=== PATIENT | female | born 1965 | race Caucasian/White ===

== ENCOUNTER 2018-06-19 09:09 | Emergency (ER) | payer MEDICAID ==
[2018-06-19] MEDS ORDERED: IBUPROFEN 600 MG TAB PO ONE (09:39)
--- NOTE | 2018-06-19 09:44 | EDPHY ---
H & P Time Seen by Provider: 06/19/18 09:16 HPI/ROS: This patient describes achy and sharp pain to the region of her proximal 1st 2nd metatarsals. She explains that she awakened yesterday and stepped out of bed noticing the abrupt pain when she but weight on the foot without any antecedent significant injuries. 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 She reports the pain is 5/10 at rest and more severe and sharp when she tries to bear weight. She had partial relief from ibuprofen yesterday but has not taken any yet today. She drove herself here for evaluation. ROS: Constitutional: No fevers Integumentary: No skin rash Musculoskeletal: No other musculoskeletal complaints. Neuro: No numbness or tingling 5 point review of symptoms is performed and otherwise negative with exception of pertinent positives and negatives listed in HPI and ROS Smoking Status: Never smoked Physical Exam: Physical Exam Vital signs are normal. General: No acute distress HEENT: Atraumatic. Eyes: Pupils equal and react to light. Extraocular motions are intact. Lungs: No respiratory distress. Cardiac: Brisk capillary refill is intact throughout. Pulses are 2+ and symmetric in the affected extremity. Skin: No rash or pallor. Extremities: Atraumatic normal except for left foot Left foot: Patient has moderate to severe tenderness to the proximal 1st and 2nd metatarsal region. No lateral/5th metatarsal tenderness. No ankle swelling or tenderness but no leg swelling or tenderness or knee findings. There is no associated erythema or ecchymosis. She also has no plantar tenderness to the foot. No toe swelling or tenderness Neuro: Alert and oriented x3 with no sensorimotor deficits. Initial differential diagnosis: Stress fracture, foot sprain, contusion, doubt plantar fasciitis based on exam Constitutional: Initial Vital Signs Temperature (C) 37 C 06/19/18 09:14 Heart Rate 85 06/19/18 09:14 Respiratory Rate 16 06/19/18 09:14 Blood Pressure 151/76 H 06/19/18 09:14 O2 Sat (%) 18 L 06/19/18 09:14 O2 Delivery Mode Room Air Allergies/Adverse Reactions: ciprofloxacin [From Cipro] Allergy (Verified 06/19/18 09:19) ciprofloxacin HCl [From Cipro] Allergy (Verified 06/19/18 09:19) eletriptan [From Relpax] Allergy (Verified 06/19/18 09:19) levofloxacin [From Levaquin] Allergy (Verified 06/19/18 09:19) tachycardia Penicillins Allergy (Verified 06/19/18 09:19) Rash Sulfa (Sulfonamide Antibiotics) Allergy (Verified 06/19/18 09:19) Rash Home Medications: Medication Instructions Recorded Albuterol Sulf 07/08/10 Synthroid 07/08/10 Bcp 10/08/15 Flovent 110 MCG Hfa MDI (RX) 10/08/15 MDM/Departure - [facility] Imaging Results: Imaging Impressions Foot X-Ray 06/19/18 09:38 Impression: 1. Presumed bipartite medial sesamoid. Would correlate with point tenderness to exclude acute fracture. 2. Tiny cysts at the heads of the second and third metatarsals are likely degenerative, less likely related to underlying osteonecrosis. Imaging: I viewed and interpreted images myself ED Course/Re-evaluation: Ibuprofen p.o. With partial relief Patient is placed in a walker boot She has crutches already and understands how to use them appropriately. Discussion: Patient with metatarsal tenderness and pain with history of being on her feet more than usual due to a combination of being a realtor and in pharmacy school concerning for potential stress fracture. No acute radiographic findings are noted on plain films. Will treat her as a fracture with plan to follow up with Dr. Silva-orthopedics for further evaluation as an outpatient. - Depart Disposition: Home, Routine, Self-Care Clinical Impression: Pain in metatarsus of left foot Condition: Good Instructions: Arthralgia (ED) Additional Instructions: Diagnosis: Metatarsal pain left foot The we see no overt fracture on your x-ray you may have a stress fracture which often does not show up on the initial x-rays. Plan: Elevate foot when you are able Continue ibuprofen Add Tylenol and/or tramadol if needed for pain that prevents sleep or is more severe. No school or work on tramadol Call Dr. Kilgore-orthopedic physician to arrange follow-up appointment for further evaluation for ongoing symptoms. Referrals: NONE *PRIMARY CARE P,. [Primary Care Provider] - As per Instructions Aryan Kilgore MD [Medical Doctor] - As per Instructions
[2018-06-19 10:46] VITALS: BP 142/70
== END 2018-06-19 10:35 | disposition home or self-care (01) ==
LOC: CED 09:09
DX: M77.42 Metatarsalgia, left foot (principal); M20.12 Hallux valgus (acquired), left foot; M85.672 Other cyst of bone, left ankle and foot
CPT/HCPCS: 73630-PO; L4386